=== PATIENT | female | born 1980 | race Caucasian/White ===

== ENCOUNTER 2018-09-29 23:42 | Emergency (ER) | payer BC ==
[~2018-09-29] VITALS: Ht 157.5 cm; Wt 71.2 kg
[2018-09-29 23:47] VITALS: Ht 157.5 cm; Wt 71.2 kg
[2018-09-30 00:56] VITALS: BP 119/85
== END 2018-09-30 00:56 | disposition home or self-care (01) ==
LOC: ED 23:42
DX: O26.892 Other specified pregnancy related conditions, second trimester (principal); M25.521 Pain in right elbow; M25.561 Pain in right knee; M25.562 Pain in left knee; W18.30XA Fall on same level, unspecified, initial encounter; Y93.89 Activity, other specified; Y92.89 Other specified places as the place of occurrence of the external cause; Y99.8 Other external cause status